=== PATIENT | male | born 1950 | race Caucasian/White ===

== ENCOUNTER → 2018-03-12 | Outpatient (CLI) | payer OTHER ==
[~2018-03-12] VITALS: Ht 188 cm; Wt 122.5 kg
[~2018-03-12] MED LIST: CARVEDILOL12.5 MG PO; CLONAZEPAM 1 MG1 M1 PO; COZAAR 25 MG TA25 M1 PO; CRESTOR20 MG PO; ELIQUIS5 MG PO; FENOFIBRATE160 MG PO; GABAPENTIN 100100 MG PO; JARDIANCE25 MG PO; LEVOXYL150 MCG PO; METFORMIN HCL500 MG PO; MOBIC7.5 MG PO; MS CONTIN15 MG PO; NORCO 10-325 T1 EACH PO; OMEGA-31000 M1 PO; OTHER MISCELL; POTASSIUM99 M1 PO; REQUIP XL2 MG PO; TRULICITY0.75 MG/0. SUBQ; ZOCOR20 MG PO
--- NOTE | ~2018-03-12 | EKG ---
[address] [address] ELECTROCARDIOGRAM REPORT Name: AMORBREANA GALLAGHER [facility] #: [facility] [id number] Admission: 03/12/18 Attend Phys: Dionisio Hatch MD, Discharge: Date of : 48 Report #: [id number] THIS REPORT FOR: //name// [facility] Test Date: 2018-03-12 Test Time: 07:12:50 Pat Name: BREANA CHINCHILLA Department: Room: Gender: M Information Technology Security Manager: MARITZA : 1950 Requested By: Dionisio Hatch Order Number: [id number] MD: Jorge Coombs Measurements Intervals [place] Rate: 71 P: 7 WV: 266 QRS: -1 QRSD: 123 T: 31 QT: 449 QTc: 488 Interpretive Statements Sinus rhythm Prolonged WV interval IVCD, consider atypical RBBB Compared to ECG 10/31/2017 07:55:20 First degree AV block now present Atrial flutter no longer present Poor R-wave progression no longer present Electronically Signed On 03-12-2018 8:49:30 PLANOGRAMMER by Jorge Coombs [email or web address] <ELECTRONICALLY SIGNED> By: Jorge Coombs MD 03/12/18 0849 1 1 Jorge Coombs MD /EPI
--- NOTE | ~2018-03-12 | D ---
[facility] [place] [address] DISCHARGE SUMMARY Name: BREANA CHINCHILLA Room #: REG [facility] Dominic.#: [id number] Admission: 03/12/18 Attend Phys: Dionisio Hatch MD, Discharge: Date of : 48 Report #: [id number] THIS REPORT FOR: //name// CC: Fabian Orona FAM unknown Dionisio Hatch [facility] SHORT STAY SUMMARY HISTORY OF PRESENT ILLNESS: The patient is a 67-year-old male who is admitted with some progressive dyspnea, shortness of breath and fatigue and also some labile hypertension. They are planning on a cardiac catheterization and renal angiography due to his labile hypertension. History of atrial fibrillation ablation dating back last summer. Note some questionable recurrence and anticoagulated, but this has been stopped; Eliquis was stopped 3 days prior. He has had no bleeding issues. He denies any syncope or presyncope. He is not terribly active. He has chronic lymphocytic leukemia, underlying diabetes and some moderate obesity. LAITH cardioversion was initially performed in 07/2017 and then subsequently, he had an ablation. MEDICATIONS: His current medications are apixaban 5 b.i.d., which has been held; carvedilol 12.5 b.i.d.; clonazepam; Trulicity; Jardiance 25; fenofibrate, which actually should be discharged; Caro p.r.n.; Cozaar 25; Synthroid, Requip and simvastatin 10. PAST MEDICAL HISTORY: Positive for the AFib ablation and cardioversion, as stated above; hypertension; diabetes; hypercholesterolemia; hernia repair; bilateral knee arthroscopies; hip arthroplasty, shoulder surgery; shingles remotely and chronic lymphocytic leukemia. FAMILY HISTORY: Premature disease in his father; brother is hypertensive. SOCIAL HISTORY: He is and lives in [place]. No tobacco or alcohol. He does not regularly exercise, fairly sedentary. He does have children, who are also alive and well. LABORATORY DATA: H and H 15 and 42. Creatinine 1.1, potassium 4.0. PHYSICAL EXAMINATION: VITAL SIGNS: Pulse is 60s, blood pressure 136/80. HEENT: Eyes reveal no xanthelasmas. Pharynx is clear. NECK: Shows preserved upstrokes, without JVD or bruits. LUNGS: Clear. CARDIAC EXAMINATION: Regular rate and rhythm, S1, S2, without murmur or gallop. ABDOMEN: Soft. No HSM or abdominal bruit. Obese. EXTREMITIES: Reveal trace edema. Distal pulses intact. [facility] [address] [place] [address] DISCHARGE SUMMARY Name: BREANA CHINCHILLA Room #: REG [facility]#: [id number] Admission: 03/12/18 Attend Phys: Dionisio Hatch MD, Discharge: Date of : 48 Report #: [id number] NEUROLOGIC: Nonfocal. SKIN: Warm, without xanthoma or ulcer. MUSCULOSKELETAL: Generalized arthritic changes. HOSPITAL COURSE: The patient was subsequently taken to the catheterization lab. He had moderate 3-vessel disease. There is heavy calcification, 2000 by calcium score, I should note; and subsequently, the cardiac catheterization had a 40% to 50% proximal mid vessel lesion, which we will follow. Circumflex OM was a large branch, which also had a 50% eccentric lesion. The dominant right had a distal 70% smooth large, dominant vessel. Closure device was utilized without complication. Only medication change will be rosuvastatin 20 mg, need to get quite aggressive with his lipids. Because of this now moderate 3-vessel disease is found, I should also note there was no significant renal artery stenosis. See Dr. Orona's report regarding that. There will be no lifting for 48 hours. No lying in tub, Jacuzzi or brown for a week. Resume medications. Some aerobic activity and weight loss would be extremely beneficial for the patient. He is going to see Dr. Coombs of the EP Service today in the office and I suspect we could discontinue the Eliquis, but I will wait on that pending his recommendation. Scheduled 2 months in the office, 05/23/2018 to see me with lipid profile. We would certainly want his LDL down and less than 70 if not lower. We will do some sort of presumably pharmacologic nuclear stress testing next summer looking for ischemia in this distribution. The RCA appears to be the tightest, but I do not have clear symptoms. A nuclear test last August did not show significant ischemia. DISCHARGE DIAGNOSES: 1. Coronary artery disease, as described above. 2. Hypertension. 3. Hypercholesterolemia. 4. Diabetes. 5. Status post atrial fibrillation ablation. 6. Chronic lymphocytic leukemia. By: [id number] [id number] Dionisio Hatch MD, FACC /nt
--- NOTE | ~2018-03-12 | CATHLAB ---
[facility] [place] [address] INVASIVE PROCEDURE REPORT Name: BREANA CHINCHILLA Room #: REG Ria#: [id number] Admission: 03/12/18 Attend Phys: Dionisio Hatch, Discharge: Date of : 48 Date of Service: 03/12/18 1445 Report #: [id number] THIS REPORT FOR: //name// APPROVED REPORT Study performed: 03/12/2018 08:24:49 Patient Details Patient Status: Out-Patient Room #: The patient is a 67 year-old male Event Personnel Dionisio Hatch Medical Scientific Officer, Jacquie Saucedo RN RN, Elizabeth Gama RTR, Isaiah Constantino David Monitor Procedures Performed Art Access - R femoral artery* , Left Heart Catheterization Indication Chest pain Procedure Narrative A PINNACLE 6FR Sheath #[id number] sheath was inserted into the RFA^. Coronary angiography was performed using coronary diagnostic catheters. The right coronary system was accessed and visualized with a JR4 catheter. The left coronary system was accessed and visualized with a JL4 catheter. The left ventricle was accessed and visualized with a Pigtail catheter. Left ventriculogram was performed in 30 degree projection. Closure device was deployed with a 6 Fr 6F Fish closure. The patient tolerated the procedure well and there were no complications associated with the procedure. There was no hematoma. Intraoperative Conscious Sedation Sedation start time: 08:36 Case end Time: 09:05 Fentanyl 100 mcg Versed 2 mg Sedation is a combined total of renal angiography and Left heart catheterization. Fluoro Time: 2.03 minutes Dose: DAP 5662 cGycm2 738 mGy Contrast Type and Amount: Visipaque 40 ml [facility] [place] [place] [address] INVASIVE PROCEDURE REPORT Name: BREANA CHINCHILLA Room #: [facility]#: [id number] Admission: 03/12/18 Attend Phys: Dionisio Hatch, Discharge: Date of : 48 Date of Service: 03/12/18 1445 Report #: [id number] Hemodynamics The aortic pressure is 143/70 mmHg with a mean of 96 mmHg. The left ventricular pressure is 141/9 mmHg with a mean of mmHg. The left ventricular end diastolic pressure is 30 mmHg. Conclusion #1 normal left ventricular size and systolic function EF 55% #2 left main free of disease giving rise to LAD and circumflex #3 LAD is mildly calcified proximally. There is a proximal mid vessel lesion eccentric of 50-60% just after diagonal takeoff. The diagonal and the remainder of the LAD well preserved it wraps around the apex #4 circumflex OM is nondominant moderate distribution. An eccentric 60-70% proximal lesion noted #5 dominant right the distal RCA has an eccentric 7075% lesion giving rise to PDA KAREN. We'll follow this closely Remissions and plan: Moderate three-vessel disease as described above. Relatively asymptomatic. We will increase a aggressively of lipid management exercise weight loss. Will obtain nuclear stress testing looking for areas of ischemia within the next 6 months. Sooner if there would be development of symptoms. <ELECTRONICALLY SIGNED> By: Dionisio Hatch MD, FACC 03/12/18 1445 1445 1445 Dionisio Hatch MD, FACC /INF
[2018-03-12 07:13] VITALS: BP 116/68
[2018-03-12 07:18] LABS: HEMATOCRIT 42.9 % (42.0-52.0); MCH 31.5 pg (26.0-34.0); MCV 89.9 fL (80.0-100.0); RBC 4.78 mil/uL (4.50-6.00); RDW 13.5 % (10.5-14.5); WBC 5.8 thou/uL (4.0-11.0)
[2018-03-12 07:26] LABS: CALCIUM 9.2 mg/dL (8.5-10.1); CREATININE 1.1 mg/dL (0.7-1.3)
== END | disposition home or self-care (01) ==
LOC: CATH 06:50
PROVIDERS: Internal Medicine Cardiovascular Disease
DX: I25.10 Atherosclerotic heart disease of native coronary artery without angina pectoris (principal); I73.9 Peripheral vascular disease, unspecified; I70.1 Atherosclerosis of renal artery; I10 Essential (primary) hypertension; E11.9 Type 2 diabetes mellitus without complications; E03.9 Hypothyroidism, unspecified; E78.00 Pure hypercholesterolemia, unspecified; G47.33 Obstructive sleep apnea (adult) (pediatric); C91.10 Chronic lymphocytic leukemia of B-cell type not having achieved remission; M19.90 Unspecified osteoarthritis, unspecified site; I48.91 Unspecified atrial fibrillation; E66.09 Other obesity due to excess calories; Z79.01 Long term (current) use of anticoagulants; Z98.890 Other specified postprocedural states; Z79.899 Other long term (current) drug therapy; Z96.651 Presence of right artificial knee joint; Z82.49 Family history of ischemic heart disease and other diseases of the circulatory system; Z79.891 Long term (current) use of opiate analgesic

== ENCOUNTER → 2018-09-02 | Outpatient (CLI) | payer OTHER ==
[~2018-09-02] VITALS: Ht 188 cm; Wt 117.9 kg
[~2018-09-02] MED LIST changes: -CARVEDILOL12.5 MG PO; +CARVEDILOL3.125 MG PO; +CO Q-10100 MG PO; +LIORESAL 10 MG10 MG PO; +OZEMPIC1 MG/0.75 SUBQ; +TRAMADOL 50 MG50 MG
--- NOTE | ~2018-09-02 | HPC ---
[facility] [address] [address] PAIN MANAGEMENT CONSULTATION Name: BREANA CHINCHILLA Room #: REG CL MNelliR.#: [id number] Admission: 09/02/18 ������������������ Attend Phys: Matthew Rodney DO Discharge: ������������������ Date of : 48 Report #: [id number] THIS REPORT FOR: //name// CC: FAM unknown Matthew Vazquez MD DATE OF SERVICE: 09/02/2018 REFERRING PHYSICIAN: Chris Vazquez M.D. CHIEF COMPLAINT: Neck pain and upper back pain. HISTORY OF PRESENT ILLNESS: As you know, the patient is a 67-year-old male who reports longstanding history of neck pain, upper back pain, intermittent upper extremity pain with paresthesias. The patient indicates pain began on 04/18/2018. He denies injury or trauma. He has sought evaluation through multiple physicians, ultimately being sent to see Neurosurgery at [facility], Dr. Vazquez and his nurse practitioner who evaluated the patient and determined the source of symptoms may be from the thoracic spine. He underwent thoracic imaging, which shows arthritic changes but no lateralizing features and no consistent finding that would warrant treatment in the area. He continues to experience pain and subsequently referred to our clinic. He indicates again no injury or trauma that may have led to symptom development. He indicates today pain is periodic, describes the pain as aching, intermittent, numbness and tingling, places current pain score 4/10, daily average of 4/10, worst the pain has been is 9/10. The patient states his pain is exacerbated with lying down and doing certain activities, improves with repositioning and movement. The patient trialed conservative treatment options undergoing percutaneous electrode and nerve stimulation, chiropractic myofascial release techniques, but these did not improve overall pain. He has been referred to our clinic to discuss options for treatment. There were some noted changes in the thoracic spine indicated by the progress notes as extremely severe thoracic degenerative disk disease, though the MRI itself does not show significant changes. There was some concern that the patient was experiencing symptoms, possibly from another source and then referred to our clinic. We last saw this patient in 2015 where we are treating him for axial back pain and changes of the lumbar spine. PAST MEDICAL HISTORY: 1. Diabetes mellitus type 2. 2. CLL. 3. Thyroid disease. 4. Degenerative joint disease. 5. Osteoarthritis. [address] [address] PAIN MANAGEMENT CONSULTATION Name: BREANA CHINCHILLA Room #: REG CLMadeleien Rollins#: [id number] Admission: 09/02/18 ������������������ Attend Phys: Matthew Rodney DO Discharge: ������������������ Date of : 48 Report #: [id number] PAST SURGICAL HISTORY: 1. Right knee surgery with total knee replacement. 2. Right total hip arthroplasty. 3. Lumbar spine surgery. SOCIAL HISTORY: The patient denies tobacco, alcohol or IV or illicit drug use. He is a [employer]. He retired about 8 years ago, not receiving workmen's compensation nor is he trying to obtain disability benefits. He is accompanied by his daughter who is present in room today. REVIEW OF SYSTEMS: Positive for wearing corrective eyewear, nocturia, sexual difficulty, thyroid disease, [id number]-ofafshrxl diabetes, excessive thirst and urination. All other review of systems negative per 12-point review of systems other than those listed in history of present illness. PAIN SCORE: Pain impact score 31/70 indicating moderate interference of daily activities secondary to pain. ALLERGIES: No known drug allergies. CURRENT MEDICATIONS: Baclofen 10 mg t.i.d. p.r.n., tramadol 50 mg every 4 hours p.r.n., Coenzyme Q10 100 mg once a day, hydrocodone 10/325 one tab p.o. q. 8 hours p.r.n. for pain, Ozempic 0.5 mg subcutaneously per week, lovastatin 20 mg per day, gabapentin 100 mg p.o. at bedtime, losartan 25 mg per day, Jardiance 25 mg per day, Eliquis 5 mg per day, levothyroxine 150 mcg per day, ropinirole 2 mg p.r.n., clonazepam 1 mg 2 tabs p.o. at bedtime, carvedilol 3.125 mg b.i.d. and fenofibrate 160 mg per day. IMAGING DATA: MRI cervical spine obtained 09/05/2015 shows facet arthropathy from C5-C6 through C7-T1, no significant central canal stenosis, mild bilateral neural foraminal stenosis noted at the C5-C6 level. MRI of thoracic spine obtained on 08/07/2018 shows no acute fractures or bone lesions diffusely changed arthritic changes of the thoracic spine. Does not appear to be any lateralizing features. PQRS: The patient has known osteoarthritic changes of the thoracic spine, lumbar spine and cervical spine, bilateral knees and bilateral hips, status post arthroplasties. He is not a fall risk, has not had a fall in the last 3 months. He is on Eliquis and has discontinued the medication in preparation for colonoscopy tomorrow. He is treated for hypertension. He is on opioids but has a low opiate addiction potential. Pain impact score 31/70, indicating moderate interference of daily activities secondary to pain. PHYSICAL EXAMINATION: VITAL SIGNS: Blood pressure 127/71, pulse 70 and respiratory rate [address] [address] PAIN MANAGEMENT CONSULTATION Name: BREANA CHINCHILLA Room #: REG [facility]#: [id number] Admission: 09/02/18 ������������������ Attend Phys: Matthew Rodney DO Discharge: ������������������ Date of : 48 Report #: [id number] unlabored. The patient is 100% on room air. Height 6 feet 2 inches tall, weight 260 pounds and BMI calculated 33.4. GENERAL: Well-developed, well-nourished, well-hydrated exogenously obese 67-year-old male appearing stated age, pain is rated around 4/10. HEENT: Normocephalic and atraumatic. Pupils equal, round and reactive to light. Extraocular muscles are intact. Sclerae nonicteric without injection. NEUROLOGICAL: Cranial nerves 2 through 12 grossly intact. Speech fluent. The patient deemed a good historian. LUNGS: Clear. No wheeze, rhonchi or rales. CARDIOVASCULAR: Regular. No appreciable gallop and no rub. ABDOMEN: Soft and mildly obese. Normoactive bowel sounds. EXTREMITIES: Show no clubbing, no cyanosis and no edema. MUSCULOSKELETAL: The patient has palpatory tenderness over the paraspinal musculature of the upper thoracic, lower cervical spine. Cervical provocation testing is met with increasing pain. There is restriction of motion with lateral flexion as well as rotation, [id number] in its limitations, pain is elicited with these maneuvers. Spurling's test is equivocal. Upper extremity strength appears symmetrical 5/5. He is intact to light touch from C5 through T1 dermatomes. Deep tendon reflexes equal and symmetrical at biceps, brachioradialis and triceps. ASSESSMENT: 1. Possible cervical radiculopathy. 2. Cervical spondylosis with radiculopathy. 3. Chronic intractable pain. PLAN: 1. Based on today's physical exam and history the patient provides, the description the patient uses in regards to pain as well as location of symptoms, likely source of the patient's pain is cervical in nature. I agree the patient does have some changes within the thoracic spine, but movement of the thoracic spine is not limiting the patient. Deep inhalation and exhalation causes no change in overall pain. As you are aware, there is very little movement of the upper thoracic spine that would cause the symptoms the patient is experiencing nor is he experiencing any distribution of symptoms in the thoracic dermatomal pattern. It does appear he is experiencing pain along the cervical myotomal distribution. This in conjunction with the findings of severe restriction of motion of the cervical spine would indicate a progression of cervical spondylosis and likely neural foraminal stenosis and even potentially cervical central canal stenosis that may be ultimately necessary to be evaluated with imaging. We have discussed this with the patient today. The symptoms he is experiencing appear to be related to the cervical radicular symptoms and we would recommend treatment for such. We discussed the following treatment options. We discussed physical therapy, stretching exercises and traction techniques, [address] [address] PAIN MANAGEMENT CONSULTATION Name: AMORBREANA SHELLY Room #: REG RYLEY Rollins#: [id number] Admission: 09/02/18 ������������������ Attend Phys: Matthew Rodney DO Discharge: ������������������ Date of : 48 Report #: [id number] which would require as to adjust his current physical therapy program addressing only thoracic area. We discussed medication management, increasing his neuropathic pain medication and providing a low-dose opioid like medication such as increasing his tramadol for initial pain control. We discussed cervical epidural injection under fluoroscopic guidance if he can remain off his Eliquis in preparation for that neural axial blockade. We also discussed surgical options with the patient, which would require further imaging of the cervical region. After reviewing the risks and benefits of all proposed treatment options, the patient chose to begin with a cervical epidural injection. This along with an alteration in his physical therapy program. 2. The patient was advised risks and benefits of a cervical epidural injection. These risks include but are not necessarily limited to bleeding, bruising, infection, worsening pain, no relief of pain, also risk of temporary or permanent muscle weakness, temporary or permanent nerve damage, possible paralysis, post-dural puncture headache and . The patient states understood and does wish to proceed. Given the fact the patient is currently on Eliquis and has not been off, they recommended 3 days by JAGRUTI of those guidelines, we will have to remain off the Eliquis for 3 days total to undergo the procedure. We will make the patient an appointment back with us on 09/04/2018 to undergo the cervical injection. The patient will keep us apprised if he can remain off of the medication. 3. I have made adjustments in the patient's physical therapy program to address more cervical radicular symptoms. I am requesting the patient have treatment to address the cervical issues to maintain mobility, which is severely restricted and to improve overall pain. I also recommend traction techniques, heat and cold compresses, electrical stimulation if possible. These adjustments were made and provided in a prescription today. 4. No medication changes made at today's visit. The patient will continue current medical therapy as previously prescribed. 5. We will see the patient back in followup visit, 09/04/2018 to undergo cervical epidural injection under fluoroscopic guidance to address suspected cervical radiculopathy. 6. We wish to thank the referring team for the opportunity to see this patient in consultation. We will keep you apprised of his response to treatment as we address what appears to be cervical radicular symptoms involving the cervical myotomes. Again, we wish to thank you for the opportunity to see this patient in consultation. ��������������������������������������������� ���������������������������������������� By: ��������������������������������������������� 0733 0831 Matthew Rodney DO /nt
[2018-09-02 10:49] VITALS: BP 127/71
--- NOTE | 2018-09-02 11:31 | NUR ---
Pain Clinic Assessment: 1. History of Osteoarthritis: BACK History of Rheumatoid Arthritis: Not Applicable 2. Height: 6 ft. 2 in. 188.0 cm. Weight: 260.0 lb. oz. 117.936 kg. Patient's BMI: 33.4 3. Vital Signs: BP: 127/71 Pulse: 70 Resp: 20 Temp: 02 Sat: 100 ECG Mon: 4. Pain Intensity: 4 5. Fall Risk: Dizziness: Y Needs help standing or walking: N Fallen in the last 3 months: N Fall risk comments: 6. Patient on Blood Thinner: ELIQUIS 7. History of Hypertension: Y 8. Opioid Therapy greater than 6 weeks: Opiate Contract Signed: 9. Risk Assessment Tool Provided: 0-LOW 10. Functional Assessment Tool: 11. Recreational Drug Use: Never Drug Type: Tobacco Use: Never Smoker Tobacco Type: Amount or Packs/day: How Many Years: Alcohol Use: No Frequency: Quant:
== END ==
LOC: PAIN 06:56
DX: M47.22 Other spondylosis with radiculopathy, cervical region (principal); G89.4 Chronic pain syndrome

== ENCOUNTER → 2018-09-04 | Outpatient (CLI) | payer OTHER ==
[~2018-09-04] VITALS: Ht 188 cm; Wt 117.9 kg
[2018-09-04 08:19] VITALS: BP 124/70
--- NOTE | 2018-09-04 08:53 | NUR ---
Pain Clinic Assessment: 1. History of Osteoarthritis: BACK History of Rheumatoid Arthritis: Not Applicable 2. Height: 6 ft. 2 in. 188.0 cm. Weight: 260.0 lb. oz. 117.936 kg. Patient's BMI: 33.4 3. Vital Signs: BP: 124/70 Pulse: 81 Resp: 14 Temp: 02 Sat: 97 ECG Mon: 4. Pain Intensity: 4 5. Fall Risk: Dizziness: N Needs help standing or walking: N Fallen in the last 3 months: N Fall risk comments: 6. Patient on Blood Thinner: ELIQUIS 7. History of Hypertension: Y 8. Opioid Therapy greater than 6 weeks: Opiate Contract Signed: 9. Risk Assessment Tool Provided: 0-LOW 10. Functional Assessment Tool: 11. Recreational Drug Use: Never Drug Type: Tobacco Use: Never Smoker Tobacco Type: Amount or Packs/day: How Many Years: Alcohol Use: No Frequency: Quant:
--- NOTE | 2018-09-09 07:17 | HPC ---
[address] [place] [address] PAIN MANAGEMENT CONSULTATION Name: BREANA CHINCHILLA [facility] #[id number] Admission: 09/04/18 ������������������ Attend Phys: Matthew Rodney DO Discharge: ������������������ Date of : 48 Report #: [id number] THIS REPORT FOR: //name// CC: Matthew MOSS DATE OF SERVICE: 09/04/2018 CHIEF COMPLAINT: Neck pain, upper back pain, bilateral upper extremity pain. HISTORY OF PRESENT ILLNESS: As you know, the patient is a very pleasant 67-year-old male who was referred back to our clinic for upper back pain, neck pain, and bilateral upper extremity pain. The patient and I discussed treatment options at that last visit in regards to what appears to be cervical radicular symptoms. He chose to undergo a cervical epidural injection. He returns today in followup visit having been off his Eliquis for greater than 3 days to undergo this cervical epidural injection. He is placing pain score 4/10. He denies any injury or trauma that has led to symptom continuation since our last visit. He returns to undergo the first in a series of cervical epidural injections. ALLERGIES: No known drug allergies. CURRENT MEDICATIONS: See chart. SOCIAL HISTORY: The patient denies tobacco, alcohol, IV or illicit drug use. He is retired, retired about 8 years ago, unaccompanied today. IMAGING: No new imaging available. PQRS: The patient has no known osteoarthritic changes of the cervical spine, thoracic spine, lumbar spine, bilateral hips and knees and no rheumatoid arthritis. He is placing pain intensity of 4/10. He is not a fall risk, has not had a fall in the last 3 months. He is on blood thinners, which he has discontinued in preparation for today's procedure. He has a low opioid addiction potential. He is not on any chronic opioids. Pain impact score today 25/70 indicating [id number] interference of daily activities secondary to pain. PHYSICAL EXAMINATION: GENERAL: Well-developed, well-nourished, well-hydrated 67-year-old male appearing stated age, pain is rated at around 4/10. HEENT: Normocephalic, atraumatic. Pupils are equal, round, reactive to light. EXTREMITIES: Show no clubbing, no cyanosis, and no edema. MUSCULOSKELETAL: Upper extremity strength is 5/5. Muscle bulk, tone equal and symmetrical in comparing left lower extremity over right. Cervical provocation [facility] [address] [place] [address] PAIN MANAGEMENT CONSULTATION Name: BREANA CHINCHILLA Room #: REG CLI [facility].#: [id number] Admission: 09/04/18 ������������������ Attend Phys: Matthew Rodney DO Discharge: ������������������ Date of : 48 Report #: [id number] testing met with increasing pain and [id number] restriction of motion bilaterally. Spurling's test is equivocal. ASSESSMENT: 1. Cervical radiculopathy. 2. Cervical spondylosis with radiculopathy. 3. Cervical facet syndrome. 4. Chronic intractable pain. PLAN: 1. The patient has returned today in followup visit having discontinued his Eliquis for the past few days in preparation for a cervical epidural injection. The patient and I discussed the risks and the benefits of the procedure at length today. We discussed the risks that include but are not necessarily limited to bleeding, bruising, infection, worsening pain, no relief of pain, also risk of temporary or permanent muscle weakness, temporary or permanent nerve damage, possible paralysis, post-dural puncture headache and . The patient states he understood and wished to proceed. 2. No medication changes made at today's visit. The patient will continue current medical therapy as previously prescribed. 3. The patient will restart his Eliquis as previously prescribed. He will take the medication as directed. He will watch for any increase in bruising in the area of the injection. If he notes any bruising, contact our clinic. 4. We will see the patient back in followup visit on an as needed basis for possible next in the series of cervical epidural injections. PROCEDURE NOTE: DESCRIPTION OF PROCEDURE: Cervical epidural steroid injection under fluoroscopic guidance. This is the first procedure of the first series that the patient is undergoing. After obtaining written consent, the patient was taken back to the fluoroscopy suite and placed in a prone position. Separate pillows under chest and forehead to decrease cervical lordosis. The skin overlying the cervical area was prepped and draped in an aseptic fashion. The cervical interspace vertebral interspace was identified by AP fluoroscopy. The skin and subcutaneous tissue overlying the target site of injection was anesthetized using 3 mL of 1% lidocaine. A 20 gauge 3.5 inch Tuohy needle was advanced under fluoroscopic guidance toward the epidural space using a midline approach. The epidural space was identified using a loss of resistance to air technique. After negative aspiration for heme or cerebrospinal fluid, a total of 1 mL of Omnipaque was injected. A cervical epidurogram was confirmed using AP and oblique fluoroscopy. After negative aspiration for heme or cerebrospinal fluid, 5 mL of solution containing 2 mL of 40 mg/mL, 80 mg of total triamcinolone and 3 mL of lidocaine 1% was injected in [address] [address] PAIN MANAGEMENT CONSULTATION Name: BREANA CHINCHILLA [id number] Admission: 09/04/18 ������������������ Attend Phys: Matthew Rodney DO Discharge: ������������������ Date of : 48 Report #: [id number] increments. Contrast spread was noted from posterior patella space. The needle was then retracted approximately senior care and the needle track was flushed with 1 mL of 1% lidocaine. There were no apparent new sensory deficits in the upper extremities present following the procedure. A sterile bandage was placed over the injection site. The heart rate, pulse oximetry and blood pressure were continuously monitored after the procedure. There were no apparent complications. The patient tolerated the procedure well and was carefully escorted in the recovery room in stable condition. After meeting discharge criteria, the patient was discharged home. ��������������������������������������������� <ELECTRONICALLY SIGNED> ���������������������������������������� By: Matthew Rodney DO ��������������������������������������������� 09/09/18 [id number] Matthew Rodney DO /nt
== END | disposition home or self-care (01) ==
LOC: PAIN 06:43
DX: M47.22 Other spondylosis with radiculopathy, cervical region (principal); G89.29 Other chronic pain; M53.82 Other specified dorsopathies, cervical region; M19.90 Unspecified osteoarthritis, unspecified site; Z98.890 Other specified postprocedural states; Z79.01 Long term (current) use of anticoagulants; Z79.899 Other long term (current) drug therapy; Z79.891 Long term (current) use of opiate analgesic

== ENCOUNTER → 2020-06-15 | Outpatient (CLI) | payer OTHER | LOC: SJCVCIMAG 07:08 | PROVIDERS: ATTEND Internal Medicine Cardiovascular Disease | DX: I49.3 Ventricular premature depolarization (principal); I44.0 Atrioventricular block, first degree; I49.1 Atrial premature depolarization; I10 Essential (primary) hypertension; I25.10 Atherosclerotic heart disease of native coronary artery without angina pectoris; I49.9 Cardiac arrhythmia, unspecified; I48.0 Paroxysmal atrial fibrillation; E11.9 Type 2 diabetes mellitus without complications; E78.5 Hyperlipidemia, unspecified; R06.00 Dyspnea, unspecified; R42 Dizziness and giddiness; I48.92 Unspecified atrial flutter; M19.90 Unspecified osteoarthritis, unspecified site; Z98.890 Other specified postprocedural states; Z79.82 Long term (current) use of aspirin; Z79.899 Other long term (current) drug therapy; Z82.49 Family history of ischemic heart disease and other diseases of the circulatory system ==